=== PATIENT | female | born 1995 | race Caucasian/White ===

== ENCOUNTER 2018-09-22 01:50 | Emergency (ER) | payer OTHER, BC ==
[2018-09-22] MEDS ORDERED: Ondansetron 8 MG Tab.DIS PO ONE (02:23)
[2018-09-22] MEDS ORDERED: Ciprofloxacin 500 MG Tab PO ONE (02:30)
[2018-09-22] MEDS ORDERED: Phenazopyridine 95 MG Tab PO STA (03:13)
--- NOTE | 2018-09-22 03:17 | EDM.PDOC ---
ED HPI GENERAL MEDICAL PROBLEM - General Chief Complaint: Abdominal Pain Stated Complaint: vomiting Time Seen by Provider: 09/22/18 01:50 Source of Information: Reports: Patient History Limitations: Reports: No Limitations - History of Present Illness INITIAL COMMENTS - FREE TEXT/NARRATIVE: 22 y.o.w.ginny came to the ed due to N/V several times. She has left lower, suprapubic pain as well as dysuria. No Trauma, denied . She takes a control pill in order to regulate her menses. She was not sexually active for one year. No F/C no SOB, no chest pain or any other acute med issues. BP 167/68 RR 18 Pulse ox 99% on RA HR 81 Temp 36.8 Onset Date: 09/21/18 Onset Time: 19:00 Duration: Hour(s): Location: Reports: Abdomen Quality: Reports: Burning, Dull Severity: Moderate Improves with: Reports: Rest Worsens with: Reports: Movement Context: Reports: Other Associated Symptoms: Reports: Nausea/Vomiting L abdomen radiating into back & L breast Pain Score (Numeric/FACES): 7 - Related Data Allergies Allergy/AdvReac Type Severity Reaction Status Date / Time venom-honey bee Allergy Mild Swelling Verified 09/22/18 01:58 [bee venom (honey bee)] Home Meds: Home Meds Ciprofloxacin HCl [Cipro] 500 mg PO BID #20 tablet 09/22/18 [Rx] Ethinyl Estradiol/Drospirenone [Drospirenone-Ee 3-0.02 mg Tab] 1 tab DAILY 09/22 [History] Ondansetron [Zofran ODT] 4 mg PO Q6H PRN #6 tab.dis 09/22/18 [Rx] Phenazopyridine HCl [Pyridium] 100 mg PO Q8HR #9 tablet 09/22/18 [Rx] Past Medical History Gastrointestinal History: Reports: None STATE DIRECTOR History: Reports: None Other STATE DIRECTOR History: G0 Neurological History: Reports: Concussion, Migraines Psychiatric History: Reports: Anxiety, Depression Endocrine/Metabolic History: Reports: Obesity/BMI 30+ - Infectious Disease History Infectious Disease History: Reports: Chicken Pox - Past Surgical History GI Surgical History: Reports: Appendectomy Social & Family History - Family History Family Medical History: Noncontributory - Tobacco Use Smoking Status *Q: Former Smoker Years of Tobacco use: 2 Used Tobacco, but Quit: Yes Month/Year Tobacco Last Used: feb - Caffeine Use Caffeine Use: Reports: Soda - Recreational Drug Use Recreational Drug Use: No ED ROS GENERAL - Review of Systems Review Of Systems: See Below Constitutional: Reports: No Symptoms HEENT: Reports: No Symptoms Respiratory: Reports: No Symptoms Cardiovascular: Reports: No Symptoms Endocrine: Reports: No Symptoms GI/Abdominal: Reports: Abdominal Pain (lower abd.) : Reports: Dysuria Musculoskeletal: Reports: No Symptoms Skin: Reports: No Symptoms Neurological: Reports: No Symptoms Psychiatric: Reports: No Symptoms Hematologic/Lymphatic: Reports: No Symptoms Immunologic: Reports: No Symptoms ED EXAM, RENAL/ - Physical Exam Exam: See Below Exam Limited By: No Limitations General Appearance: Alert, WD/WN, Mild Distress Eye Exam: Bilateral Eye: Normal Inspection Ears: Normal External Exam, Normal Canal Nose: Normal Inspection, Normal Mucosa, No Blood Throat/Mouth: Normal Inspection, Normal Lips, Normal Teeth, Normal Gums, Normal Voice, No Airway Compromise Head: Atraumatic, Normocephalic Neck: Normal Inspection, Supple, Non-Tender, Full Range of Motion Respiratory/Chest: No Respiratory Distress, Lungs Clear, Normal Breath Sounds Cardiovascular: Normal Peripheral Pulses, Regular Rate, Rhythm, No Edema GI/Abdominal: Normal Bowel Sounds, No Organomegaly, No Abnormal Bruit, No Mass, Pelvis Stable, Tender (suprapubic) (Female) Exam: Deferred Rectal (Female) Exam: Deferred Back Exam: Normal Inspection, Full Range of Motion Extremities: Normal Inspection, Normal Range of Motion, Non-Tender, Normal Capillary Refill Neurological: Alert, Oriented, CN II-XII Intact, Normal Cognition, Normal Gait Psychiatric: Normal Affect, Normal Mood Skin Exam: Warm, Dry, Intact, Normal Color, No Rash Lymphatic: No Adenopathy Course - Vital Signs Text/Narrative:: 22 y.o.w.f came to the ed due to N/V several times. She has left lower, suprapubic pain as well as dysuria. No Trauma, denied . She takes a control pill in order to regulate her menses. She was not sexually active for one year. No F/C no SOB, no chest pain or any other acute med issues. BP 167/68 RR 18 Pulse ox 99% on RA HR 81 Temp 36.8 PE: WNWD W F with left lower abd. pain and nausea Labs: UA pos for UTI no hematuria Impression: UTI Tx: Cipr, Pyridium, Zofran Reexam: Pt improved. was able to drink water, requested to be discharged Plan: D/C with instructions Last Recorded V/S: Last Vital Signs Temp 36.8 C 09/22/18 01:53 Pulse 77 09/22/18 03:10 Resp 18 09/22/18 03:10 BP 106/67 09/22/18 03:10 Pulse Ox 99 09/22/18 03:10 - Orders/Labs/Meds Orders: Active Orders 24 hr Category Date Time Status CULTURE URINE [RM] Stat Lab 09/22/18 02:10 Received Labs: Laboratory Tests 09/22/18 09/22/18 Range/Units 02:10 02:10 Urine Color Yellow (YELLOW) Urine Appearance Slightly cloudy (CLEAR) Urine pH 5.0 (5.0-6.5) Ur Specific [place] 1.020 (1.010-1.025) Urine Protein Negative (NEGATIVE) mg/dL Urine Glucose (UA) Normal (NORMAL) mg/dL Urine Ketones 15 H (NEGATIVE) mg/dL Urine Occult Blood Negative (NEGATIVE) Urine Nitrite Positive H (NEGATIVE) Urine Bilirubin Small H (NEGATIVE) Urine Urobilinogen 4 H (NEGATIVE) mg/dL Ur Leukocyte Esterase Small H (NEGATIVE) Urine RBC 0-5 (0-5) Urine WBC 5-10 H (0-5) Ur Squamous Epith Cells Moderate H (NS,R,O) Urine Bacteria Moderate H (NS) Urine Mucus Moderate H (NS) Urine HCG, Qual Negative (NEGATIVE) Meds: Medications Discontinued Medications Generic Name Dose Route Start Last Admin Trade Name Freq PRN Reason Stop Dose Admin Ciprofloxacin 500 mg 09/22/18 02:30 09/22/18 02:50 Ciprofloxacin Hcl PO 09/22/18 02:31 500 mg ONETIME ONE Administration Ondansetron HCl 8 mg 09/22/18 02:23 09/22/18 02:31 Zofran Odt PO 09/22/18 02:24 8 mg ONETIME ONE Administration Phenazopyridine HCl 95 mg 09/22/18 03:13 09/22/18 03:28 Urinary Pain Relief PO 09/22/18 03:14 95 mg ONETIME STA Administration Departure - Departure Time of Disposition: 03:14 Disposition: Home, Self-Care 01 Condition: Good Clinical Impression: UTI (urinary tract infection) Qualifiers: Urinary tract infection type: acute cystitis Hematuria presence: without hematuria Qualified Code(s): N30.00 - Acute cystitis without hematuria - Discharge Information Prescriptions: Phenazopyridine HCl [Pyridium] 100 mg PO Q8HR #9 tablet Ciprofloxacin HCl [Cipro] 500 mg PO BID #20 tablet Ondansetron [Zofran ODT] 4 mg PO Q6H PRN #6 tab.dis PRN Reason: for nausea Instructions: Phenazopyridine tablets, Urinary Tract Infection, Adult, Easy-to- Read, Ciprofloxacin tablets Referrals: PCP,None [Primary Care Provider] - Forms: ED Department Discharge, ED Return to Work/School Form Additional Instructions: Please take the medications as recommended, increase water intake, please follow up as needed, come back if your symptoms get worse acutely - My Orders Last 24 Hours: My Active Orders 09/22/18 02:10 CULTURE URINE [RM] Stat - Assessment/Plan Last 24 Hours: My Active Orders 09/22/18 02:10 CULTURE URINE [RM] Stat
[2018-09-22 04:19] VITALS: BP 106/67; PULSE 77
== END 2018-09-22 03:31 | disposition home or self-care (01) ==
LOC: FB.ED 01:50
DX: N30.00 Acute cystitis without hematuria (principal); F41.9 Anxiety disorder, unspecified; F32.9 Major depressive disorder, single episode, unspecified; Z79.899 Other long term (current) drug therapy; Z91.030 Bee allergy status
CPT/HCPCS: 81001; 81025; 87086; 99284; A9270

== ENCOUNTER 2018-11-07 07:24 | Emergency (ER) | payer OTHER, BC ==
[2018-11-07] MEDS ORDERED: Ondansetron 4 MG Tab.DIS PO ONE (08:00)
--- NOTE | 2018-11-07 08:48 | EDM.PDOC ---
ED HPI GENERAL MEDICAL PROBLEM - General Chief Complaint: Abdominal Pain Stated Complaint: VOMITING Time Seen by Provider: 11/07/18 08:48 Source of Information: Reports: Patient History Limitations: Reports: No Limitations - History of Present Illness INITIAL COMMENTS - FREE TEXT/NARRATIVE: Patient is a very pleasant 23-year-old female who presents today with sudden sharp onset of lower abdominal pain that started when she got up this morning. The pain was severe enough that she vomited one time. She was feeling well when she went to bed last night. She has not had any other symptoms. She has not had any recent change in her bowels such as diarrhea or constipation. She does not note any changes in her urinary such as increased frequency or urgency, but occasionally does feel some pressure. She has irregular periods and has been undergoing workup with PATENT PARALEGAL, having an ultrasound last week which showed an ovarian cyst. She denies any abnormal vaginal discharge. She has not had any recent STD testing, however she has been with her current partner for about a year and they both tested negative prior to being with each other per report. She has a history of having had her appendix out, but no other abdominal surgeries. She denies any fever, chills or sweats. She is otherwise healthy and takes no regular medications Lower abdominal pain Pain Score (Numeric/FACES): 9 - Related Data Allergies Allergy/AdvReac Type Severity Reaction Status Date / Time venom-honey bee Allergy Mild Swelling Verified 11/07/18 07:52 [bee venom (honey bee)] Home Meds: Home Meds NK [No Known Home Meds] 11/07/18 [History] Past Medical History Gastrointestinal History: Reports: None Other PATENT PARALEGAL History: G0. Ovarian cyst Neurological History: Reports: Concussion, Migraines Psychiatric History: Reports: Anxiety, Depression Other Psychiatric History: hx cutting Endocrine/Metabolic History: Reports: Obesity/BMI 30+ - Infectious Disease History Infectious Disease History: Reports: Chicken Pox - Past Surgical History GI Surgical History: Reports: Appendectomy Social & Family History - Family History Family Medical History: Noncontributory - Tobacco Use Smoking Status *Q: Former Smoker Years of Tobacco use: 3 Used Tobacco, but Quit: Yes Month/Year Tobacco Last Used: 2017 - Caffeine Use Caffeine Use: Reports: Coffee, Energy Drinks, Soda - Alcohol Use Days Per Week of Alcohol Use: 2 Number of Drinks Per Day: 4 Total Drinks Per Week: 8 - Recreational Drug Use Recreational Drug Use: No ED ROS GENERAL - Review of Systems Review Of Systems: ROS reveals no pertinent complaints other than HPI. ED EXAM, GENERAL - Physical Exam Exam: See Below Free Text/Narrative:: Gen.: Alert, pleasant in no acute distress. Head is atraumatic, pupils equal and reactive. Neck is supple and there is no cervical lymphadenopathy. Throat is without erythema, mucous members are moist. Heart is regular rate and rhythm , lungs are clear throughout with no wheezes or crackles. Abdomen positive bowel sounds, soft and diffusely tender in the lower abdominal area particularly in the suprapubic region. Peripheral pulses are +2 in the upper and lower extremities and there is no lower extremity edema. Her skin is without any lesions or rashes. Psych: Mood and affect are appropriate. Pelvic exam shows normal external female genitalia. Cervix is closed and there is minimal physiologic discharge in vaginal vault. She has mild bilateral adnexa tenderness and minimal cervical motion tenderness, more like discomfort, no chandelier sign Course - Vital Signs Text/Narrative:: Initial impression- patient history of having an appendectomy, most likely at this point something involving the gynecologic organs. She has a tender lower abdomen but no rebound or guarding. Vitals are stable and she is otherwise well appearing. Labs ordered Last Recorded V/S: Last Vital Signs Temp 36.6 C 11/07/18 07:47 Pulse 92 11/07/18 07:47 Resp 18 11/07/18 07:47 BP 104/66 11/07/18 07:47 Pulse Ox 100 11/07/18 07:47 - Orders/Labs/Meds Orders: Active Orders 24 hr Category Date Time Status Transvaginal Non OB [US] Stat Exams 11/07/18 14:29 Taken Labs: Laboratory Tests 11/07/18 11/07/18 11/07/18 Range/Units 08:27 08:27 09:10 WBC 8.5 (4.5-12.0) X10-3/uL RBC 4.55 (3.23-5.20) x10(6)uL Hgb 12.9 (11.5-15.5) g/dL Hct 39.6 (30.0-51.3) % MCV 87.2 (80-96) fL MCH 28.3 (27.7-33.6) pg MCHC 32.5 (32.2-35.4) g/dL RDW 11.7 (11.5-15.5) % Plt Count 403 H (125-369) X10(3)uL MPV 8.0 (7.4-10.4) fL Neut % (Auto) 62.3 (46-82) % Lymph % (Auto) 25.6 (13-37) % [place] % (Auto) 8.8 (4-12) % Eos % (Auto) 3 (1.0-5.0) % Baso % (Auto) 0 (0-2) % Neut # (Auto) 5.4 (1.6-8.3) # Lymph # (Auto) 2.2 (0.6-5.0) # [place] # (Auto) 0.7 (0.0-1.3) # Eos # (Auto) 0.2 (0.0-0.8) # Baso # (Auto) 0.0 (0.0-0.2) # Sodium (135-145) mmol/L Potassium (3.5-5.3) mmol/L Chloride (100-110) mmol/L Carbon Dioxide (21-32) mmol/L BUN (7-18) mg/dL Creatinine (0.55-1.02) mg/dL Est Cr Clr Drug Dosing mL/min Estimated GFR (MDRD) (>60) BUN/Creatinine Ratio (9-20) Glucose (80-116) mg/dL Calcium (8.6-10.2) mg/dL Total Bilirubin (0.1-1.3) mg/dL AST (5-25) IU/L ALT (12-36) U/L Alkaline Phosphatase (56-112) IU/L Total Protein (6.0-8.0) g/dL Albumin (3.5-5.2) g/dL Globulin g/dL Albumin/Globulin Ratio Amylase (25-115) U/L HCG, Quant (<5) mIU/mL Urine Color Yellow (YELLOW) Urine Appearance Slightly cloudy (CLEAR) Urine pH 7.0 H (5.0-6.5) Ur Specific [place] 1.010 (1.010-1.025) Urine Protein Negative (NEGATIVE) mg/dL Urine Glucose (UA) Normal (NORMAL) mg/dL Urine Ketones 15 H (NEGATIVE) mg/dL Urine Occult Blood Negative (NEGATIVE) Urine Nitrite Negative (NEGATIVE) Urine Bilirubin Negative (NEGATIVE) Urine Urobilinogen Normal (NEGATIVE) mg/dL Ur Leukocyte Esterase Negative (NEGATIVE) Urine WBC 0-5 (0-5) Ur Squamous Epith Cells Few H (NS,R,O) Urine Bacteria Few H (NS) Urine Sperm Few H (NS) Urine HCG, Qual Positive H (NEGATIVE) 11/07/18 11/07/18 Range/Units 09:10 09:10 WBC (4.5-12.0) X10-3/uL RBC (3.23-5.20) x10(6)uL Hgb (11.5-15.5) g/dL Hct (30.0-51.3) % MCV (80-96) fL MCH (27.7-33.6) pg MCHC (32.2-35.4) g/dL RDW (11.5-15.5) % Plt Count (125-369) X10(3)uL MPV (7.4-10.4) fL Neut % (Auto) (46-82) % Lymph % (Auto) (13-37) % [place] % (Auto) (4-12) % Eos % (Auto) (1.0-5.0) % Baso % (Auto) (0-2) % Neut # (Auto) (1.6-8.3) # Lymph # (Auto) (0.6-5.0) # [place] # (Auto) (0.0-1.3) # Eos # (Auto) (0.0-0.8) # Baso # (Auto) (0.0-0.2) # Sodium 139 (135-145) mmol/L Potassium 3.8 (3.5-5.3) mmol/L Chloride 104 (100-110) mmol/L Carbon Dioxide 27 (21-32) mmol/L BUN 6 L (7-18) mg/dL Creatinine 0.6 (0.55-1.02) mg/dL Est Cr Clr Drug Dosing 121.66 mL/min Estimated GFR (MDRD) > 60 (>60) BUN/Creatinine Ratio 10.0 (9-20) Glucose 81 (80-116) mg/dL Calcium 9.1 (8.6-10.2) mg/dL Total Bilirubin 0.5 (0.1-1.3) mg/dL AST 15 (5-25) IU/L ALT 29 (12-36) U/L Alkaline Phosphatase 68 (56-112) IU/L Total Protein 7.8 (6.0-8.0) g/dL Albumin 3.4 L (3.5-5.2) g/dL Globulin 4.4 g/dL Albumin/Globulin Ratio 0.8 Amylase 45 (25-115) U/L HCG, Quant 241 (<5) mIU/mL Urine Color (YELLOW) Urine Appearance (CLEAR) Urine pH (5.0-6.5) Ur Specific [place] (1.010-1.025) Urine Protein (NEGATIVE) mg/dL Urine Glucose (UA) (NORMAL) mg/dL Urine Ketones (NEGATIVE) mg/dL Urine Occult Blood (NEGATIVE) Urine Nitrite (NEGATIVE) Urine Bilirubin (NEGATIVE) Urine Urobilinogen (NEGATIVE) mg/dL Ur Leukocyte Esterase (NEGATIVE) Urine WBC (0-5) Ur Squamous Epith Cells (NS,R,O) Urine Bacteria (NS) Urine Sperm (NS) Urine HCG, Qual (NEGATIVE) Meds: Medications Discontinued Medications Generic Name Dose Route Start Last Admin Trade Name Freq PRN Reason Stop Dose Admin Ondansetron HCl 4 mg 11/07/18 08:00 11/07/18 08:26 Zofran Odt PO 11/07/18 08:01 4 mg ONETIME ONE Administration - Re-Assessments/Exams Free Text/Narrative Re-Assessment/Exam: 11/07/18 labs returned within normal limits except for urine hCG. Quant hCG added which returns at 241. Patient very excited about test, warned that she is very early unlikely will not see anything on the ultrasound. Will get pelvic ultrasound to rule out other causes of pain. Free Text/Narrative Re-Assessment/Exam: 11/07/18 14:35 ultrasound preliminary read returns with gestational sac seen in the uterus, no pole. There is free fluid in the posterior cul-de-sac and a cyst noted on the left ovary, right ovary appears normal. Discussed these preliminary results with patient, we'll call if there is a discrepancy in the final report. Discussed some early preliminary such as daily vitamin, abstaining from all alcohol use, taking only medications which are approved for during . Recommend stop by [facility] and lease picker a list of medication safety take during . Signs or symptoms which would require return to the emergency room and all questions were answered. She is in agreement with this plan Departure - Departure Time of Disposition: 14:36 Disposition: Home, Self-Care 01 Condition: Good Clinical Impression: Ovarian cyst, Free fluid in pelvis, First trimester - Discharge Information *PRESCRIPTION DRUG MONITORING PROGRAM REVIEWED*: Not Applicable *COPY OF PRESCRIPTION DRUG MONITORING REPORT IN PATIENT FRANDY: Not Applicable Instructions: How a Baby Grows During , First Trimester of Referrals: Tamia Patel PA [Primary Care Provider] - Forms: ED Department Discharge Additional Instructions: Follow-up with PCP Recommend stop by [facility] and lease picker list of medications safe to take during No exposure to cat litter, avoid cold cuts or unpasteurized cheeses No alcohol Activity level can remain the same as prior to being as long as you feel okay vitamin daily Congratulations! - My Orders Last 24 Hours: My Active Orders 11/07/18 14:29 Transvaginal Non OB [US] Stat - Assessment/Plan Last 24 Hours: My Active Orders 11/07/18 14:29 Transvaginal Non OB [US] Stat
[2018-11-07 15:10] VITALS: BP 134/73; PULSE 107
--- NOTE | 2018-11-08 08:15 | US ---
INDICATION: Pelvic pain, very early . TRANSVAGINAL PELVIC ULTRASOUND - OB: Utilizing transvaginal probe, multiple ultrasonic images were obtained with color flow, 11/07/18, and compared with from [facility]. Very prominent endometrial cavity echo is noted, which measures at least 19 mm. There is an irregular fluid collection in the fundal area, which could represent an abnormal gestational sac. No pole was seen. It is seen in the posterior aspect of the fundal endometrium. A moderately large amount of free fluid is noted in the posterior cul-de-sac and adjacent to the ovaries. This could be physiologic due to rupture of a large physiologic cyst or a rupturing large physiologic cyst and is increased over the previous examination. A simple cyst seen at the left ovary compatible with a follicular cyst, which measured 5.8 cm maximally on the previous study now measures only 4.04 cm, ( previous measurements 5.8 x 5.03 x 4.12 cm compared with current measurements of 4.04 x 2.14 x 3.54 cm). The ovaries measured, on the right, 3 x 2.2 x 2.1 cm with a volume of 7.26 mL and appears essentially normal with follicles. The left ovary measured 4.6 x 3.1 x 4.8 cm with a somewhat kidney silver shaped anechoic - cystic area, compatible with an involuting follicular cyst. The cyst on the previous examination at the left ovary showed no invagination, as is seen currently, making it more likely that this represents an involuting cyst and perhaps explaining the increased amount of free fluid in the pelvis. The left ovary is otherwise unremarkable. No adnexal mass lesions were seen. IMPRESSION: 1. Irregular shaped gestational sac, which measures approximately 8.4 mm, compatible with 5 weeks, 3 days gestational age; however, no pole was seen. Likely this represents an abnormal gestation. Followup recommended. 2. Larger amount of free fluid in the pelvis, posterior cul-de-sac, and to the ovaries, likely on the basis of an involuting left follicular cyst, which appears invaginated now and decreased in size, compared with the previous study of 11/03/18. [facility]
[2018-11-11 10:08] LABS: CHLAMYDIA TRACHOMATIS, NAA Negative (Negative); NEISSERIA GONORRHOEAE, NAA Negative (Negative)
== END 2018-11-07 14:44 | disposition home or self-care (01) ==
LOC: FB.ED 07:24
DX: O34.81 Maternal care for other abnormalities of pelvic organs, first trimester (principal); N83.202 Unspecified ovarian cyst, left side; R18.8 Other ascites; O99.211 Obesity complicating pregnancy, first trimester; Z87.891 Personal history of nicotine dependence; Z91.030 Bee allergy status; Z90.49 Acquired absence of other specified parts of digestive tract; Z3A.00 Weeks of gestation of pregnancy not specified; Z3A.01 Less than 8 weeks gestation of pregnancy
CPT/HCPCS: 36415; 76817; 80053; 81001; 81025; 82150; 84702; 85025; 87086; 87491; 87591; 99284; A9270

== ENCOUNTER 2020-06-29 19:53 | Emergency (ER) | payer OTHER, BC ==
[2020-06-29] MEDS ORDERED: Ondansetron 4 MG Tab.DIS PO ONE (19:54)
[2020-06-29] MEDS ORDERED: Ondansetron 4 MG/2 ML SDV IVPUSH ONE (20:12)
[2020-06-29] MEDS ORDERED: Sodium Chloride 0.9% 1,000 ML IV ONE (20:12)
[2020-06-29] MEDS ORDERED: Metoclopramide 10 MG/2 ML SDV IVPUSH ONE (21:27)
--- NOTE | 2020-06-29 21:39 | EDM.PDOC ---
ED HPI GENERAL MEDICAL PROBLEM - General Chief Complaint: Gastrointestinal Problem Stated Complaint: NAUSEA Time Seen by Provider: 06/29/20 20:30 Source of Information: Reports: Patient, Family History Limitations: Reports: No Limitations - History of Present Illness INITIAL COMMENTS - FREE TEXT/NARRATIVE: c/o n/v up late last night for bday constitution party with 12 guests for 2 yo dtr not eaten today, n/v at 2p that has persisted h/o appy, no abd pain, loose BM x 2 in ED felt much better after 1 liter NS, given Zofran and Reglan for N Abdominal Pain Score (Numeric/FACES): 7 - Related Data Allergies Allergy/AdvReac Type Severity Reaction Status Date / Time venom-honey bee Allergy Mild Swelling Verified 06/29/20 20:45 [bee venom (honey bee)] Home Meds: Home Meds NK [No Known Home Meds] 11/07/18 [History] Past Medical History Gastrointestinal History: Reports: None PAYABLE REPRESENTATIVE History: Reports: Polycystic Ovaries, Other PAYABLE REPRESENTATIVE History: G1. Ovarian cyst, Neurological History: Reports: Concussion, Migraines Psychiatric History: Reports: Anxiety, Depression, Suicide Attempt Other Psychiatric History: hx cutting; not on any medication and is not seeing anybody for it. Endocrine/Metabolic History: Reports: Obesity/BMI 30+ - Infectious Disease History Infectious Disease History: Reports: Chicken Pox, Novel Coronavirus - Past Surgical History GI Surgical History: Reports: Appendectomy Social & Family History - Family History Family Medical History: No Pertinent Family History - Tobacco Use Tobacco Use Status *Q: Former Tobacco User Used Tobacco, but Quit: Yes Month/Year Tobacco Last Used: 2016 - Caffeine Use Caffeine Use: Reports: Coffee, Soda Other Caffeine Use: decaff once in while - Recreational Drug Use Recreational Drug Use: No ED ROS GENERAL - Review of Systems Review Of Systems: See Below Constitutional: Reports: No Symptoms HEENT: Reports: No Symptoms Respiratory: Reports: No Symptoms Cardiovascular: Reports: No Symptoms Endocrine: Reports: No Symptoms GI/Abdominal: Reports: Diarrhea, Nausea, Vomiting. Denies: Abdominal Pain : Reports: No Symptoms Musculoskeletal: Reports: No Symptoms Skin: Reports: No Symptoms Neurological: Reports: No Symptoms Psychiatric: Reports: No Symptoms Hematologic/Lymphatic: Reports: No Symptoms Immunologic: Reports: No Symptoms ED EXAM, GI/ABD - Physical Exam Exam: See Below Exam Limited By: No Limitations General Appearance: Alert, WD/WN Neck: Normal Inspection Respiratory/Chest: Lungs Clear Cardiovascular: Regular Rate, Rhythm GI/Abdominal Exam: Normal Bowel Sounds, Soft, Non-Tender, Other (very soft, no mass, nl BS x 4) Back Exam: Normal Inspection, Full Range of Motion Extremities: Normal Inspection, Normal Range of Motion Neurological: Alert, Oriented, CN II-XII Intact, Normal Cognition, No Motor/Sensory Deficits Psychiatric: Normal Affect, Normal Mood Skin Exam: Warm, Dry, Intact, Normal Color, No Rash Lymphatic: No Adenopathy Course - Vital Signs Last Recorded V/S: Last Vital Signs Temp 36.3 C 06/29/20 19:55 Pulse 109 H 06/29/20 19:55 Resp 26 H 06/29/20 19:55 BP 131/72 06/29/20 19:55 Pulse Ox 100 06/29/20 19:55 - Orders/Labs/Meds Meds: Medications Discontinued Medications Generic Name Dose Route Start Last Admin Trade Name Cailin PRN Reason Stop Dose Admin Sodium Chloride 1,000 mls @ 999 mls/hr 06/29/20 20:12 Normal Saline IV 06/29/20 21:12 .BOLUS ONE Metoclopramide HCl 10 mg 06/29/20 21:27 Metoclopramide 10 Mg/2 Ml Sdv IVPUSH 06/29/20 21:28 ONETIME ONE Ondansetron HCl 4 mg 06/29/20 20:12 Ondansetron 4 Mg/2 Ml Sdv IVPUSH 06/29/20 20:13 ONETIME ONE - Re-Assessments/Exams Free Text/Narrative Re-Assessment/Exam: 06/29/20 21:38 with similar sxs last wk Departure - Departure Time of Disposition: 21:35 Disposition: Home, Self-Care 01 Condition: Good Clinical Impression: Viral gastroenteritis - Discharge Information *PRESCRIPTION DRUG MONITORING PROGRAM REVIEWED*: Not Applicable *COPY OF PRESCRIPTION DRUG MONITORING REPORT IN PATIENT FRANDY: Not Applicable Instructions: Viral Gastroenteritis, Adult Additional Instructions: For nausea, take ondansetron SL 4 mg 1 tab under the tongue every 6 hours as needed. Rest. Increase fluids. Eat a bland diet for 24 hours. Sepsis Event Note (ED) - Evaluation Sepsis Screening Result: No Definite Risk - Focused Exam Vital Signs: Vital Signs Temp Pulse Resp BP Pulse Ox 06/29/20 19:55 36.3 C 109 H 26 H 131/72 100
[2020-06-30 00:14] VITALS: BP 126/77; PULSE 93
== END 2020-06-29 22:00 | disposition home or self-care (01) ==
LOC: FB.ED 19:53
DX: A08.4 Viral intestinal infection, unspecified (principal); E66.9 Obesity, unspecified; Z87.891 Personal history of nicotine dependence; Z91.030 Bee allergy status; Z68.29 Body mass index [BMI] 29.0-29.9, adult
CPT/HCPCS: 96374; 96375; 99283; A9270; J2405; J2765; J7030

== ENCOUNTER 2021-01-16 13:37 | Emergency (ER) | payer OTHER, BC ==
--- NOTE | 2021-01-16 14:00 | EDM.PDOC ---
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 It was a throbbing type pain that was also dull. Seemingly associated with this she had vision was somewhat blurry and she had to blink her eyes for several minutes it seemed to get her vision to come back to normal. Following this she did have some numbness and tingling in her left hand and it felt like the "muscles" or locked up and then she had some numbness and tingling along her left face. She had her supervisor dumping check her blood pressure and it was 123/81. Her headache seemed to be coming back and with this she called her OB doctor as she is 32 weeks and they recommended that she come to the emergency department for evaluation. She presents to the emergency department via private vehicle from her work. She is currently rating the headache is a 2/10. His pressure type pain in her frontal head. She has no weakness or numbness of any form in her body. Her vision is normal. There has been no nausea or vomiting. She actually feels quite a bit better than she did earlier. There are no other associated signs or symptoms. There are no other modifying factors. Onset: Today (Beginning at 9 AM) Duration: Constant (And progressing as above.) Location: Reports: Head Quality: Reports: Dull, Pressure, Throbbing Severity: Moderate Improves with: Reports: None Worsens with: Reports: None Context: Reports: Other (As above.) Associated Symptoms: Reports: No Other Symptoms (Except as above.) Treatments HEEL STIFFENER: Reports: Other (see below) (Nothing.) - Related Data Allergies Allergy/AdvReac Type Severity Reaction Status Date / Time venom-honey bee Allergy Mild Swelling Verified 01/16/21 14:38 [bee venom (honey bee)] Home Meds: Home Meds NK [No Known Home Meds] 11/07/18 [History] Past Medical History 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 Ovarian cyst, Neurological History: Reports: Concussion, Migraines Psychiatric History: Reports: Anxiety, Depression, Suicide Attempt Other Psychiatric History: hx cutting; not on any medication and is not seeing anybody for it. Endocrine/Metabolic History: Reports: Obesity/BMI 30+ - Infectious Disease History Infectious Disease History: Reports: Chicken Pox, Novel Coronavirus - Past Surgical History GI Surgical History: Reports: Appendectomy Social & Family History - Family History Neurological: Reports: Migraines - Tobacco Use Tobacco Use Status *Q: Unknown Ever Used Tobacco (Nonsmoker.) - Caffeine Use Caffeine Use: Reports: Coffee, Soda Other Caffeine Use: decaff once in while - Alcohol Use Alcohol Use History: No - Living Situation & Occupation Occupation: Employed (Works at [employer]) ED ROS GENERAL - Review of Systems Review Of Systems: See Below Constitutional: Denies: Fever, Chills HEENT: Denies: Eye Pain Respiratory: Denies: Shortness of Breath, Cough Cardiovascular: Denies: Chest Pain, Palpitations GI/Abdominal: Denies: Abdominal Pain, Nausea, Vomiting : Denies: Dysuria, Hematuria Musculoskeletal: Denies: Neck Pain, Back Pain Skin: Denies: Diaphoresis, Rash Neurological: Reports: Headache Psychiatric: Reports: Anxiety Hematologic/Lymphatic: Denies: Easy Bleeding, Easy Bruising ED EXAM, GENERAL - Physical Exam Exam: See Below Exam Limited By: No Limitations General Appearance: Alert, WD/WN, No Apparent Distress Eye Exam: Bilateral Eye: EOMI, Normal Inspection, PERRL Ears: Normal External Exam, Hearing Grossly Normal Ear Exam: Bilateral Ear: Auricle Normal Nose: Normal Inspection, Normal Mucosa Throat/Mouth: Normal Inspection, Normal Oropharynx, Normal Voice, No Airway Compromise Head: Atraumatic, Normocephalic Neck: Normal Inspection, Supple, Non-Tender, Full Range of Motion Respiratory/Chest: No Respiratory Distress, Lungs Clear, Normal Breath Sounds, No Accessory Muscle Use, Chest Non-Tender Cardiovascular: Normal Peripheral Pulses, Regular Rate, Rhythm, No Edema, No JVD, No Murmur Peripheral Pulses: 2+: Radial (L), Radial (R), Dorsalis Pedis (L), Dorsalis Pedis (R) GI/Abdominal: Normal Bowel Sounds, Soft, Non-Tender, No Mass, Other ( heart tones were 147.) Back Exam: Normal Inspection Extremities: Normal Inspection, Normal Range of Motion, Non-Tender, No Pedal Edema, Normal Capillary Refill Neurological: Alert, Oriented, CN II-XII Intact, Normal Cognition, No Motor/Sensory Deficits Psychiatric: Normal Affect Skin Exam: Warm, Dry, Intact Course - Vital Signs Last Recorded V/S: Last Vital Signs Temp 36.6 C 01/16/21 15:00 Pulse 87 01/16/21 15:00 Resp 16 01/16/21 15:00 BP 115/64 01/16/21 15:00 Pulse Ox 99 01/16/21 15:00 - Orders/Labs/Meds Labs: Laboratory Tests 01/16/21 01/16/21 01/16/21 Range/Units 14:15 14:40 14:40 WBC 10.3 (3.0-10.3) x10-3/uL RBC 3.86 (3.60-5.20) x10(6)uL Hgb 10.9 L (11.4-15.5) g/dL Hct 33.1 L (34.2-48.2) % MCV 85.7 (76.7-100.5) fL MCH 28.3 (23.9-33.9) pg MCHC 33.0 (31.9-34.8) g/dL RDW 12.6 (12.3-16.5) % Plt Count 262 (151-488) x10(3)uL MPV 7.3 (7.1-12.4) fL Neut % (Auto) 66.9 (30.8-76.2) % Lymph % (Auto) 22.7 (18.4-52.1) % Coal % (Auto) 8.7 (4.4-15.7) % Eos % (Auto) 1.4 (0.6-8.1) % Baso % (Auto) 0.3 (0.2-1.5) % Neut # (Auto) 6.9 H (1.5-6.3) x10-3/uL Lymph # (Auto) 2.3 (1.0-4.4) x10-3/uL Coal # (Auto) 0.9 (0.3-1.0) x10-3/uL Eos # (Auto) 0.1 (0.0-0.8) x10-3/uL Baso # (Auto) 0.0 (0.0-0.1) x10-3/uL Sodium 135 (135-145) mmol/L Potassium 3.2 L (3.5-5.3) mmol/L Chloride 104 (100-110) mmol/L Carbon Dioxide 24 (21-32) mmol/L BUN 5 L (7-18) mg/dL Creatinine 0.5 L (0.55-1.02) mg/dL Est Cr Clr Drug Dosing TNP Estimated GFR (MDRD) > 60 (>60) BUN/Creatinine Ratio 10.0 (9-20) Glucose 87 (80-116) mg/dL Calcium 8.3 L (8.6-10.2) mg/dL Total Bilirubin 0.3 (0.1-1.3) mg/dL AST 14 (5-25) IU/L ALT 21 D (12-36) U/L Alkaline Phosphatase 100 (56-112) IU/L Total Protein 6.7 (6.0-8.0) g/dL Albumin 2.5 L (3.5-5.2) g/dL Globulin 4.2 g/dL Albumin/Globulin Ratio 0.6 Ur Random Creatinine 78 mg/dL U Random Total Protein 9.4 (<11.9) mg/dL Protein/Creatinin Ratio 0.12 mg/mg - Re-Assessments/Exams Free Text/Narrative Re-Assessment/Exam: 01/16/21 14:12: I discussed patient's case with Dr. Sauer, apparel fashion designer at [facility], and she recommends that I checked labs on the patient here and she is specifically concerned about preeclampsia the patient would need a CBC with a platelet count, LFTs and chemistries with a BUN and creatinine as well and a spot protein to creatinine ratio of the urine. She felt that if all these were normal and the patient was feeling improved and neurologically intact/stable, she can be discharged home. She did state that the patient should have a low threshold for getting an earlier appointment than her appointment on 01/27/2021 for any symptoms that were concerning to her. 01/16/21 15:23: Patient's headache is resolved. She feels improved. She is having no symptoms of numbness or tingling vision issues. Her platelet count is normal. Her LFTs are normal. Her hemoglobin is normal. Her BUN and creatinine are normal. The protein to creatinine ratio is 0.12 and normal. With all of these normal, the OB doctor at [facility], Dr. Sauer, felt that the patient could be discharged home. I discussed all this with the patient and she is comfortable with plan for discharge. She will go home today and she will not at work again until Tuesday and she should rest over the next few days. She is to increase her fluid intake. Precautions and reasons to return to the emergency department were discussed with the patient while she was in the emergency department and were detailed in the patient's discharge instructions. Departure - Departure Time of Disposition: 15:30 Disposition: Home, Self-Care 01 Condition: Good Clinical Impression: Third trimester Headache Qualifiers: Headache type: unspecified Headache chronicity pattern: acute headache Intractability: not intractable Qualified Code(s): R51.9 - Headache, unspecified - Discharge Information Referrals: Lucretia Evangelista LOG YARD DERRICK OPERATOR [Primary Care Provider] - Forms: ED Department Discharge Additional Instructions: Your blood pressure was normal here. Your exam was reassuring. All of your blood tests were reassuringly normal and did not point toward any preeclampsia. I discussed your case with the OB doctor at [facility], Dr. Sauer, and she felt that you should keep your follow-up appointment on 01/27/2021 and you can call and follow up sooner if you are having any problems. Back to the emergency department for worsening headache, unrelenting vomiting, localized area of weakness or numbness or any other concerning signs or symptoms. No work until 01/19/2021. Sepsis Event Note (ED) - Focused Exam Vital Signs: Vital Signs Temp Pulse Resp BP Pulse Ox 01/16/21 15:00 36.6 C 87 16 115/64 99
[2021-01-16 19:14] VITALS: BP 115/64; PULSE 87
== END 2021-01-16 15:40 | disposition home or self-care (01) ==
LOC: FB.ED 13:37
DX: O99.891 Other specified diseases and conditions complicating pregnancy (principal); R51.9 Headache, unspecified; Z91.030 Bee allergy status; Z3A.32 32 weeks gestation of pregnancy
CPT/HCPCS: 36415; 80053; 82570; 84156; 85025; 99284

== ENCOUNTER 2021-05-09 18:56 | Emergency (ER) | payer OTHER, BC ==
[2021-05-09 19:11] VITALS: BP 132/87; PULSE 57
[2021-05-09] MEDS ORDERED: Sodium Chloride 0.9% 10 ML Syringe FLUSH PRN (19:12)
[2021-05-09] MEDS ORDERED: Sodium Chloride 0.9% 1,000 ML IV ONE (19:13)
[2021-05-09] MEDS ORDERED: Acetaminophen 500 MG Tab PO STA (19:14)
[2021-05-09] MEDS ORDERED: Ketorolac 30 MG/ML SDV IVPUSH ONE (19:14)
[2021-05-09] MEDS ORDERED: Ondansetron 4 MG/2 ML SDV IVPUSH ONE (19:14)
[2021-05-09] MEDS ORDERED: SUMAtriptan 50 MG Tab PO ONE (19:15)
[2021-05-09] MEDS ORDERED: diphenhydrAMINE 50 MG/ML SDV IVPUSH ONE (19:16)
== END 2021-05-09 20:45 | disposition home or self-care (01) ==
LOC: FB.ED 18:56
DX: G43.909 Migraine, unspecified, not intractable, without status migrainosus (principal); E66.9 Obesity, unspecified; Z91.030 Bee allergy status; Z86.16 Personal history of COVID-19; Z68.32 Body mass index [BMI] 32.0-32.9, adult
CPT/HCPCS: 96374; 96375; 99283; A9270; J1200; J1885; J2405; J7030; 99282

== ENCOUNTER 2021-09-28 07:19 | Emergency (ER) | payer OTHER, BC ==
[2021-09-28] MEDS ORDERED: Sodium Chloride 0.9% 10 ML Syringe FLUSH PRN (07:32)
[2021-09-28] MEDS: Ketorolac 30 MG/ML SDV IVPUSH STA (07:57)
[2021-09-28] MEDS: Morphine 2 MG/ML SYRINGE IVPUSH STA (07:57)
[2021-09-28] MEDS: Ondansetron 4 MG/2 ML SDV IVPUSH ONE (07:57)
[2021-09-28] MEDS: Sodium Chloride 0.9% 1,000 ML IV SCH (07:57)
[2021-09-28 08:08] LABS: ESTIMATED GFR 124 mL/min (>60)
[2021-09-28] MEDS: Iopamidol 755 Mg/ML 100 ML Bottle IV ONE (09:00)
[2021-09-28 09:17] VITALS: PULSE 78
[2021-09-28 10:49] VITALS: BP 117/78
== END 2021-09-28 10:30 | disposition home or self-care (01) ==
LOC: FB.ED 07:19
DX: N94.0 Mittelschmerz (principal); E66.9 Obesity, unspecified; Z91.030 Bee allergy status; Z86.16 Personal history of COVID-19; Z68.31 Body mass index [BMI] 31.0-31.9, adult
CPT/HCPCS: 36415; 74177; 80053; 81001; 81025; 82150; 83690; 85025; 96361; 96374; 96375; 99284; J1885; J2270; J2405; J7030; Q9967

== ENCOUNTER 2022-06-23 09:03 | Emergency (ER) | payer BC ==
[2022-06-23] MEDS ORDERED: Sodium Chloride 0.9% 10 ML Syringe FLUSH PRN (09:44)
[2022-06-23] MEDS ORDERED: Ondansetron 4 MG/2 ML SDV IVPUSH ONE (09:47)
[2022-06-23] MEDS ORDERED: Morphine 4 MG/ML VIAL IVPUSH ONE (09:47)
[2022-06-23] MEDS ORDERED: Ketorolac 30 MG/ML SDV IVPUSH ONE (09:47)
[2022-06-23] MEDS ORDERED: Sodium Chloride 0.9% 1,000 ML IV SCH (10:00)
[2022-06-23 10:42] LABS: ESTIMATED GFR 105 mL/min (>60)
[2022-06-23] MEDS ORDERED: Iopamidol 755 Mg/ML 100 ML Bottle IV ONE (10:59)
[2022-06-23 12:32] VITALS: BP 106/57; PULSE 83
== END 2022-06-23 12:00 | disposition home or self-care (01) ==
LOC: FB.ED 09:03
DX: K52.9 Noninfective gastroenteritis and colitis, unspecified (principal); E66.9 Obesity, unspecified; Z68.28 Body mass index [BMI] 28.0-28.9, adult; Z91.038 Other insect allergy status; Z86.16 Personal history of COVID-19; Z90.49 Acquired absence of other specified parts of digestive tract
CPT/HCPCS: 36415; 74177; 80053; 81001; 81025; 82150; 83690; 85025; 96361; 96374; 96375; 99284-25; J1885; J2270; J2405; J7030; Q9967

== ENCOUNTER 2022-11-03 13:54 | Emergency (ER) | payer BC ==
[2022-11-03] MEDS: predniSONE 20 MG Tab PO ONE (14:17)
[2022-11-03] MEDS: Famotidine 20 MG Tab PO ONE (14:18)
[2022-11-03] MEDS: diphenhydrAMINE 50 MG Cap PO ONE (14:18)
[2022-11-03] MEDS: Ibuprofen 800 MG Tab PO ONE (15:39)
[2022-11-03 15:48] VITALS: BP 106/62; PULSE 93
== END 2022-11-03 15:50 | disposition home or self-care (01) ==
LOC: FB.ED 13:54
DX: T63.441A Toxic effect of venom of bees, accidental (unintentional), initial encounter (principal); E66.9 Obesity, unspecified; Z68.29 Body mass index [BMI] 29.0-29.9, adult; Z86.16 Personal history of COVID-19; Z91.030 Bee allergy status; Z79.899 Other long term (current) drug therapy
CPT/HCPCS: 99283; A9270; J7512

== ENCOUNTER 2023-02-17 16:27 | Emergency (ER) | payer BC ==
[2023-02-17] MEDS ORDERED: Ondansetron 4 MG Tab.DIS PO ONE (16:28)
[2023-02-17] MEDS ORDERED: Sodium Chloride 0.9% 1,000 ML IV ONE ×3 (17:02→19:28)
[2023-02-17] MEDS ORDERED: Ondansetron 4 MG/2 ML SDV IVPUSH ONE (17:02)
[2023-02-17] MEDS ORDERED: Sodium Chloride 0.9% 10 ML Syringe FLUSH PRN (17:02)
[2023-02-17 17:33] LABS: BILIRUBIN,URINE NEGATIVE (NEGATIVE); GLUCOSE,URINE NORMAL (NORMAL); KETONES,URINE NEGATIVE (NEGATIVE); LEUKOCYTE ESTERASE,URINE NEGATIVE (NEGATIVE); NITRITE,URINE NEGATIVE (NEGATIVE); OCCULT BLOOD,URINE NEGATIVE (NEGATIVE); PROTEIN,URINE NEGATIVE (NEGATIVE); UROBILINOGEN,URINE NORMAL (NEGATIVE)
[2023-02-17 17:37] LABS: HEMATOCRIT 41.6 % (34.2-48.2); HEMOGLOBIN 13.8 g/dL (11.4-15.5); MEAN CORPUSCULAR HEMOGLOBIN 28.7 pg (23.9-33.9); MEAN CORPUSCULAR HGB CONC 33.2 g/dL (31.9-34.8); MEAN CORPUSCULAR VOLUME 86.5 fL (76.7-100.5); MEAN PLATELET VOLUME 7.6 fL (7.1-12.4); PLATELET COUNT,PLT 383 x10(3)uL (151-488); RED BLOOD CELL COUNT 4.81 x10(6)uL (3.60-5.20); RED CELL DISTRIBUTION WIDTH 13.1 % (12.3-16.5)
[2023-02-17 17:38] LABS: APPEARANCE,URINE CLEAR (CLEAR); BACTERIA,URINE FEW (NS); COLOR,URINE YELLOW (YELLOW); RBC,URINE 0-5 (0-5); SQUAMOUS EPITHELIAL CELLS,UR MODERATE (NS,R,O); WBC,URINE 0-5 (0-5)
[2023-02-17 17:40] LABS: BLOOD UREA NITROGEN,BUN 6 mg/dL (7-18); BUN/CREATININE RATIO 8.6 (9-20); CALCIUM 9.6 mg/dL (8.6-10.2); CARBON DIOXIDE,CO2 23 mmol/L (21-32); CHLORIDE,CL 100 mmol/L (100-110); CREATININE 0.7 mg/dL (0.55-1.02); ESTIMATED GFR 122 mL/min (>60); GLUCOSE RANDOM 99 mg/dL (80-116); POTASSIUM,K 3.8 mmol/L (3.5-5.3); SODIUM,NA 137 mmol/L (135-145)
[2023-02-17 17:42] LABS: C-REACTIVE PROTEIN 1.42 mg/dL (<0.50)
[2023-02-17 17:51] LABS: A/G RATIO 0.8; ALANINE AMINOTRANSFERASE,ALT 36 U/L (12-36); ALBUMIN 3.7 g/dL (3.5-5.2); ALKALINE PHOSPHATASE 63 IU/L (56-112); ASPARTATE AMNIOTRANSFERASE,AST 19 IU/L (5-25); BILIRUBIN TOTAL 0.6 mg/dL (0.1-1.3); LYMPHOCYTES PERCENT MAN 5 % (13-37); MAGNESIUM 1.6 mg/dL (1.8-2.5); MONOCYTES PERCENT MAN 5 % (4-12); PROTEIN TOTAL,TP 8.1 g/dL (6.0-8.0); SEG NEUTROPHILS PERCENT MAN 90 % (46-82)
[2023-02-17] MEDS ORDERED: Metoclopramide 10 MG/2 ML SDV IVPUSH ONE (20:17)
[2023-02-17] MEDS ORDERED: Magnesium Oxide 400 MG Tab PO ONE (20:34)
[2023-02-17] MEDS ORDERED: Loperamide 2 MG Cap PO ONE (20:34)
[2023-02-17 20:53] VITALS: BP 117/67; PULSE 110
== END 2023-02-17 20:50 | disposition home or self-care (01) ==
LOC: FB.ED 16:27
DX: E86.0 Dehydration (principal); E83.42 Hypomagnesemia; E66.9 Obesity, unspecified; Z86.16 Personal history of COVID-19; Z91.030 Bee allergy status
CPT/HCPCS: 36415; 80053; 81001; 81025; 83605; 83690; 83735; 85025; 86140; 96361; 96374; 96375; 99284-25; A9270-GY; J2405; J2765; J3490; J7030; Q0162

== ENCOUNTER 2024-01-14 09:14 | Emergency (ER) | payer BC ==
[2024-01-14] MEDS ORDERED: Sodium Chloride 0.9% 10 ML Syringe FLUSH PRN (10:07)
[2024-01-14] MEDS: Ondansetron 4 MG/2 ML SDV IVPUSH ONE ×2 (10:15→11:52)
[2024-01-14] MEDS: Sodium Chloride 0.9% 1,000 ML IV ONE (10:15)
[2024-01-14 10:17] LABS: BASOPHILS PERCENT AUTO 0.4 % (0.2-1.5); EOSINOPHILS PERCENT AUTO 0.1 % (0.6-8.1); HEMATOCRIT 41.9 % (34.2-48.2); HEMOGLOBIN 14.3 g/dL (11.4-15.5); LYMPHOCYTES ABSOLUTE AUTO 1.3 x10-3/uL (1.0-4.4); LYMPHOCYTES PERCENT AUTO 12.3 % (18.4-52.1); MEAN CORPUSCULAR HEMOGLOBIN 28.8 pg (23.9-33.9); MEAN CORPUSCULAR HGB CONC 34.1 g/dL (31.9-34.8); MEAN CORPUSCULAR VOLUME 84.6 fL (76.7-100.5); MONOCYTES PERCENT AUTO 9.4 % (4.4-15.7); NEUTROPHILS ABSOLUTE AUTO 8.4 x10-3/uL (1.5-6.3); NEUTROPHILS PERCENT AUTO 77.8 % (30.8-76.2); PLATELET COUNT,PLT 340 x10(3)uL (151-488); RED BLOOD CELL COUNT 4.95 x10(6)uL (3.60-5.20); RED CELL DISTRIBUTION WIDTH 12.9 % (12.3-16.5); WHITE BLOOD CELL COUNT,WBC 10.8 x10-3/uL (3.0-10.3)
[2024-01-14 10:23] LABS: BLOOD UREA NITROGEN,BUN 7 mg/dL (7-18); CARBON DIOXIDE,CO2 24 mmol/L (21-32); CHLORIDE,CL 101 mmol/L (100-110); CREATININE 0.7 mg/dL (0.55-1.02); ESTIMATED GFR 121 mL/min (>60); GLUCOSE RANDOM 101 mg/dL (80-116); POTASSIUM,K 3.2 mmol/L (3.5-5.3); SODIUM,NA 139 mmol/L (135-145)
[2024-01-14 10:29] LABS: A/G RATIO 0.9; ALANINE AMINOTRANSFERASE,ALT 26 U/L (12-36); ALBUMIN 4.1 g/dL (3.5-5.2); ALKALINE PHOSPHATASE 73 IU/L (56-112); ASPARTATE AMNIOTRANSFERASE,AST 13 IU/L (5-25); BILIRUBIN TOTAL 0.5 mg/dL (0.1-1.3); PROTEIN TOTAL,TP 8.7 g/dL (6.0-8.0)
[2024-01-14 10:42] LABS: LACTIC ACID 1.3 mmol/L (0.4-2.0)
[2024-01-14 11:20] LABS: INFLUENZA A NAA NEGATIVE (NEGATIVE); INFLUENZA B NAA NEGATIVE (NEGATIVE); RESPIRATORY SYNCYTIAL VIR NAA NEGATIVE (NEGATIVE)
[2024-01-14 11:21] LABS: CORONAVIRUS COVID-19 NAA NEGATIVE (NEGATIVE)
[2024-01-14] MEDS: Promethazine 12.5 MG in Sodium Chloride 0.9% 50 ML IV ONE (13:05)
[2024-01-14] MEDS: Potassium Chloride 20 MEQ Tab.ER PO ONE (14:09)
[2024-01-14] MEDS: Atropine/Diphenoxylate 0.025-2.5 MG Tab PO ONE (14:09)
[2024-01-14 18:03] VITALS: BP 142/90; PULSE 102
== END 2024-01-14 18:03 | disposition home or self-care (01) ==
LOC: FB.ED 09:14
DX: K52.9 Noninfective gastroenteritis and colitis, unspecified (principal); E86.0 Dehydration; E66.9 Obesity, unspecified; Z86.16 Personal history of COVID-19; Z90.49 Acquired absence of other specified parts of digestive tract; Z87.891 Personal history of nicotine dependence; Z91.030 Bee allergy status; Z79.899 Other long term (current) drug therapy
CPT/HCPCS: 0241U; 80053; 83605; 83690; 85025; 86140; 96361; 96365; 96375; 96376; 99284; A9270; J2405; J2550; J3490; J7030